=== PATIENT | male | born 1970 | race Caucasian/White ===

== ENCOUNTER → 2016-11-24 | Outpatient (CLI) | payer OTHER ==
[~2016-11-24] MED LIST: CPRDOTS OT; EQUATE PO; NAPR1TAB9 PO; TRAM-10 PO; [UNRECOGNIZED DRUG - OTHER] PO
[2016-11-24 12:46] LABS: BLOOD UREA NITROGEN 13 mg/dl (7-18); CREATININE 0.91 mg/dl (0.60-1.40); GLUCOSE 102 mg/dl (70-99)
[2016-11-24 12:47] LABS: ALT/SGPT 20 U/L (12-78); BUN/CREATININE RATIO 13.8 (10-20); CARBON DIOXIDE 28 mmol/L (21-32); CHLORIDE 105 mmol/L (98-107); CHOLESTEROL 217 mg/dl (0-200); POTASSIUM 4.4 mmol/L (3.5-5.1); SODIUM 139 mmol/L (136-145)
[2016-11-24 12:51] LABS: ALB/GLOB RATIO 1.2 (0.9-2); ALKALINE PHOSPHATASE 63 U/L (45-117); AST/SGOT 14 U/L (15-37); CHOLESTEROL/HDL RATIO 3.9; HDL CHOLESTEROL 55 mg/dl; LDL CHOLESTEROL CALCULATED 142 mg/dl; TRIGLYCERIDES 101 mg/dl (0-150); VERY LOW DENSITY LIPOPROT CALC 20 mg/dl
[2016-11-24 13:05] LABS: ESTIMATED AVERAGE GLUCOSE 105 mg/dl; HA1C FLAG Normal (Normal)
== END | disposition home or self-care (01) ==
LOC: C.LABBFT 11:10
PROVIDERS: ATTEND Nurse Practitioner
DX: I25.10 Atherosclerotic heart disease of native coronary artery without angina pectoris (principal); N52.9 Male erectile dysfunction, unspecified

== ENCOUNTER → 2016-11-28 | Outpatient (CLI) | payer OTHER ==
[~2016-11-28] MED LIST changes: +GADAVIST IV PRN
--- NOTE | 2016-11-28 18:29 | DIAGNOSTIC IMAGING REPORT ---
MRI OF THE BRAIN WITHOUT AND WITH IV CONTRAST CLINICAL HISTORY: G43.909 Headache, [id number] Left-sided weakness Please call N weakness. Visual change. COMPARISON STUDY: 11/14/2011 TECHNIQUE: Utilizing a 1.5 Vivi magnet and dedicated coil, multiplanar, multiecho imaging of the brain was performed pre and postcontrast administration. IV administration of 8.5 mL of Gadavist contrast was uneventful. FINDINGS: Diffusion-weighted images show no acute ischemic insult. Signal characteristics are unremarkable. Ventricular system is midline. There is no significant postcontrast enhancement. Sella and parasellar regions are unremarkable. IMPRESSION: Normal MRI of the brain. No change from the prior study. Electronically signed by: Ronen Pozo M.D. 11/28/2016 6:28 PM Dictated Date/Time: 11/28/2016 6:25 PM
== END | disposition home or self-care (01) ==
LOC: C.MRI 17:32
PROVIDERS: ATTEND Nurse Practitioner
DX: G43.909 Migraine, unspecified, not intractable, without status migrainosus (principal); M62.81 Muscle weakness (generalized)

== ENCOUNTER 2017-05-15 16:01 | Emergency (ER) | payer OTHER ==
[~2017-05-15] VITALS: Ht 177.8 cm; Wt 80.4 kg
[~2017-05-15 16:01] MED LIST changes: -CPRDOTS OT; -GADAVIST IV PRN; -TRAM-10 PO
[2017-05-15 16:04] VITALS: BP 124/79; PULSE 93; TEMP 37.2; O2SAT 95; Ht 177.8 cm; Wt 80.4 kg
[2017-05-15] MEDS ORDERED: CPRDOTS OT (16:20)
--- NOTE | 2017-05-15 16:26 | EMERGENCY ROOM VISIT NOTE ---
History First contact with patient: 16:10 Chief Complaint: EAR PAIN Stated Complaint: EAR ACHE History of Present Illness The patient is a 47 year old male who presents to the Emergency Room with complaints of right ear pain 2 days. The patient reports he has had pain in the right ear with radiation into the jaw and neck for the past 2 days. He denies any history of ear infections. His states that she looked inside the ear and it appeared to be swollen. He rates his discomfort a 7/10. He has not been swimming recently. He is not a diabetic. He denies any cough, sore throat, fevers or chills. Review of Systems A complete 10 point review of systems was reviewed with the patient with pertinent positives and negatives as per history of present illness. All else were negative. Social History Smoking Status: Never Smoker Alcohol Use: none Drug Use: none Marital Status: Occupation Status: employed Current/Historical Medications No Active Prescriptions or Reported Meds Physical Exam Vital Signs Date Time Temp Pulse Resp B/P (MAP) Pulse Ox O2 Delivery O2 Flow Rate FiO2 05/15/17 16:04 37.2 93 16 124/79 95 Room Air Physical Exam VITALS: Vitals are noted on the nurse's note and reviewed by myself. Vital signs stable. GENERAL: This is a 47-year-old male, in no acute distress, nondiaphoretic, well- developed well-nourished. SKIN: The skin was without rashes. EARS: The right external auditory canal is mildly edematous and erythematous. The tympanic membrane is visible and is pearly alford. There is no bleeding or purulent drainage. The left external auditory canal and tympanic membrane are within normal limits. EYES: Pupils equal round and reactive to light and accommodation. NOSE: Patent, turbinates without inflammation or discharge. No sinus tenderness. MOUTH: Mucous membranes moist. Tonsils are not enlarged. Pharynx without erythema or exudate. NECK: Supple without nuchal rigidity. No lymphadenopathy. HEART: Regular rate and rhythm without murmurs gallops or rubs. LUNGS: Clear to auscultation bilaterally without wheezes, rales or rhonchi. NEURO: Patient was alert and oriented to person place and time. Medical Decision & Procedures Medical Decision Differential diagnosis includes otitis media, otitis externa, among others. The patient was evaluated as above. Exam is consistent with otitis externa. Patient will be placed on Ciprodex drops. Conservative measures were discussed. He was encouraged to alternate ibuprofen and Tylenol for pain. He was advised to follow-up with his primary care provider for further evaluation. The patient verbalized understanding of my assessment and treatment plan and was discharged home in good condition. Medication Reconcilliation Current Medication List: was personally reviewed by me Blood Pressure Screening Patient's blood pressure: Normal blood pressure Impression Primary Impression: Otitis externa of right ear Departure Information Dispostion Home / Self-Care Condition GOOD Prescriptions Ciprofloxacin/Dexamethasone (Ciprodex 0.3-0.1 %) 112 Drops/7.5 Ml Susp 4 DROPS OT BID for 7 Days, #1 BTL Prov: Mercedez Palmer .REJI 05/15/17 Referrals Tim Estrada M.D. (PCP) Patient Instructions My [facility] Additional Instructions You have been treated in the Emergency Department for an Outer Ear Infection ( Otitis Externa). Ciprodex drops: 4 drops in the right ear twice daily for 7 days. Complete the entire course of antibiotics, even if you are feeling better. For pain and fever control, you can use the following [id number] medicines (if >12 yo): - Regular strength (325mg/tab) Tylenol (acetaminophen) 2 tabs every 4-6 hours as needed. Do not exceed 12 tablets in a 24 hour period. Avoid taking more than 4 grams (4000 mg) of Tylenol per day. This includes any other sources of acetaminophen you may take on a regular basis. - Regular strength (200 mg/tab) Advil (ibuprofen) 3-4 tabs every 4-6 hours as needed. Do not exceed a dose of 3200 mg per day. You should follow-up with your Primary Care Provider from today's Emergency Department visit. Return to the emergency department if you develop the following symptoms despite treatment course outlined above: headache, fever, intractable pain, increased redness, swelling, or purulent discharge.
== END 2017-05-15 16:32 | disposition home or self-care (01) ==
LOC: C.EDB 16:02 → C.EDD 16:32
DX: H60.91 Unspecified otitis externa, right ear (principal)